=== PATIENT | male | born 1990 | race American Indian/Alaskan Native ===

== ENCOUNTER 2016-09-17 10:34 | Inpatient (IN) | payer SELFPAY ==
[2016-09-17 11:29] LABS: Anion Gap 21 mmol/L; Blood Urea Nitrogen 12 mg/dL (9-20); Calcium 9.2 mg/dL (8.4-10.2); Carbon Dioxide 23 mmol/L (22-30); Chloride 102.3 mmol/L (98-107); Glucose 123 mg/dL (75-100); Lipase 39 units/L (13-60); Potassium 3.2 mmol/L (3.6-5.0); Sodium 143 mmol/L (137-145)
[2016-09-17 11:32] LABS: Basophils % (Auto) 0.3 % (0.0-1.8); Eosinophils % (Auto) 0.9 % (0.0-4.3); Hematocrit 42.5 % (35.5-45.6); Hemoglobin 14.5 gm/dl (11.8-15.2); Mean Corpuscular HGB Conc 34 % (32-34); Mean Corpuscular Hemoglobin 29 pg (28-32); Mean Corpuscular Volume 85 fl (84-94); Platelet Count 211 K/mm3 (140-440); Red Blood Count 5.02 M/mm3 (3.65-5.03); Red Cell Distribution Width 13.5 % (13.2-15.2); White Blood Count 7.2 K/mm3 (4.5-11.0)
[2016-09-17 12:32] LABS: Bilirubin,Urine NEG (Negative); Blood,Urine NEG (Negative); Ketones,Urine NEG (Negative); Leukocyte Esterase,Urine NEG (Negative); Mucus,Urine FEW /HPF; Nitrite,Urine NEG (Negative); Protein,Urine <15 mg/dL mg/dL (Negative); Urobilinogen,Urine < 2.0 mg/dL (<2.0); WBC,Urine < 1.0 /HPF (0.0-6.0)
[2016-09-17] MEDS ORDERED: NACL 0.9% 1000 ML 1,000 ML IV ONE ×2 (13:50→15:33)
[2016-09-17] MEDS ORDERED: ZOFRAN IV ONE ×2 (13:50→18:30)
[2016-09-17] MEDS ORDERED: PEPCID IV ONE (13:50)
--- NOTE | 2016-09-17 14:43 | Emergency Department Report ---
<VIDA ALEGRIA - Last Filed: 09/17/16 18:44> ED N/V/D HPI - General Chief complaint: Nausea/Vomiting/Diarrhea Stated complaint: VOMITING/STOMACH PAIN/NAUSEA Time Seen by Provider: 09/17/16 13:49 Source: patient Mode of arrival: Wheelchair Limitations: No Limitations - History of Present Illness Initial comments: 26-year-old male past medical history marijuana use presents with complaint of 3 -4 days of intermittent nausea vomiting and abdominal pain subjective chills. Patient states that he is having difficulty maintaining any fluid or food by mouth. Patient actively vomiting during clinical exam, accompanied by his family members. MD complaint: nausea, vomiting, abdominal pain Onset/Timin -: days(s) Description of Vomiting: food contents, watery Associated Abdominal Pain: Yes Location: diffuse, periumbillcal, RLQ Pain Scale: 7 Quality: sharp Consistency: constant Worsens with: eating Associated Symptoms: nausea/vomiting - Related Data Allergies Allergy/AdvReac Type Severity Reaction Status Date / Time No Known Allergies Allergy Unverified 09/17/16 10:45 ED Review of Systems ROS: Stated complaint: VOMITING/STOMACH PAIN/NAUSEA Other details as noted in HPI Constitutional: denies: chills, fever Eyes: denies: eye pain, eye discharge, vision change ENT: denies: ear pain, throat pain Respiratory: denies: cough, shortness of breath, wheezing Cardiovascular: denies: chest pain, palpitations Endocrine: no symptoms reported Gastrointestinal: abdominal pain, nausea, vomiting. denies: diarrhea Genitourinary: denies: urgency, dysuria Musculoskeletal: denies: back pain, joint swelling, arthralgia Skin: denies: rash, lesions Neurological: denies: headache, weakness, paresthesias Psychiatric: denies: anxiety, depression Hematological/Lymphatic: denies: easy bleeding, easy bruising ED Past Medical Hx - Past Medical History Previous Medical History?: No - Surgical History Past Surgical History?: Yes Additional Surgical History: HERNIA REPAIR - Social History Smoking Status: Current Every Day Smoker Substance Use Type: Alcohol, Marijuana ED Physical Exam - General Limitations: No Limitations General appearance: alert, in no apparent distress - Head Head exam: Present: atraumatic, normocephalic - Eye Eye exam: Present: normal appearance, PERRL, EOMI - ENT ENT exam: Present: mucous membranes moist - Neck Neck exam: Present: normal inspection, full ROM - Respiratory Respiratory exam: Present: normal lung sounds bilaterally. Absent: respiratory distress - Cardiovascular Cardiovascular Exam: Present: regular rate, normal rhythm. Absent: systolic murmur, diastolic murmur, rubs, gallop - GI/Abdominal GI/Abdominal exam: Present: soft, tenderness (tenderness in both lower quadrants ), guarding, normal bowel sounds - Rectal Rectal exam: Present: deferred - Extremities Exam Extremities exam: Present: normal inspection - Back Exam Back exam: Present: normal inspection - Neurological Exam Neurological exam: Present: alert, oriented X3, CN II-XII intact, normal gait - Psychiatric Psychiatric exam: Present: normal affect, normal mood - Skin Skin exam: Present: warm, dry, intact, normal color. Absent: rash ED Course Vital Signs 09/17/16 09/17/16 09/17/16 10:46 15:51 18:51 Temperature 98.2 F Pulse Rate 52 L 65 Respiratory 16 16 16 Rate Blood Pressure 146/87 Blood Pressure 128/71 [Left] O2 Sat by Pulse 100 100 Oximetry 09/17/16 18:52 Temperature Pulse Rate 68 Respiratory 16 Rate Blood Pressure Blood Pressure 152/65 [Left] O2 Sat by Pulse 100 Oximetry ED Medical Decision Making - Lab Data Result diagrams: 09/17/16 10:54 09/17/16 10:54 - Medical Decision Making A/P: Abdominal pain, nausea and vomiting, clinical suspicion for appendicitis 1-I discussed case with Dr. Han. Given clinical concern for appendicitis I called Dr. Callejas of general surgery. As per Dr. Callejas patient to be nothing by mouth after midnight to be admitted to 2 W. surgical unit for appendectomy tomorrow morning. 2-analgesia, Dilaudid 0.5 mg every 4 when necessary, Zofran 4 mg every 8 when necessary, maintenance IV fluid, Ancef 2 g initial bolus then 1 g every 8 hours until after surgery as per 3-I informed the patient and his family members including mother at bedside of the clinical plan and our clinical concern. Patient in agreement with clinical plan and expresses understanding of the scenario Critical care attestation.: If time is entered above; I have spent that time in minutes in the direct care of this critically ill patient, excluding procedure time. ED Disposition Disposition: OP ADMIT IP TO THIS HOSP Is pt being admited?: Yes Does the pt Need Aspirin: No Condition: Stable <WENDI HAN - Last Filed: 09/17/16 19:50> ED Medical Decision Making - Lab Data Result diagrams: 09/17/16 10:54 09/17/16 10:54 - Medical Decision Making I have seen and examined this patient myself. I agree with the PA or FIELD CLINICAL ENGINEER plan as discussed. Patient is a young male with possible appendicitis. Discussed case with surgery. Plan to admit. Jareth Han
[2016-09-17 15:13] LABS: Alanine Aminotransferase 16 units/L (7-56); Albumin 4.5 g/dL (3.9-5); Albumin/Globulin Ratio 1.6 %; Alkaline Phosphatase 48 units/L (35-129); Creatine Kinase 138 units/L (55-170); Total Protein 7.3 g/dL (6.3-8.2)
[2016-09-17] MEDS ORDERED: REGLAN IV ONE (15:15)
[2016-09-17] MEDS ORDERED: TORADOL IV ONE (15:16)
[2016-09-17 15:28] LABS: Bilirubin,Direct < 0.2 mg/dL (0-0.2); Bilirubin,Indirect 0.3 mg/dL
[2016-09-17] MEDS ORDERED: NACL ONE (16:41)
--- NOTE | 2016-09-17 18:11 | Cat Scan Report ---
FINAL REPORT EXAM: CT ABDOMEN PELVIS W CON HISTORY: abdominal pain worsening TECHNIQUE: CT examination of the ABDOMEN after IV contrast CT examination of the PELVIS after IV contrast PRIORS: None. FINDINGS: Normal-appearing liver, gallbladder, adrenals, pancreas, and spleen. Intact normal caliber abdominal aorta and IVC. Normal-appearing kidneys. No hydronephrosis. Ureters obscured by adjacent anatomy. Normal-appearing stomach and duodenum. No small bowel distention in the abdomen and pelvis. Nonspecific slight pelvic cul-de-sac free fluid. This may be reactive. Normal-appearing urinary bladder, prostate, seminal vesicles, and rectum. Normal-appearing sigmoid colon. No gross ascites, free air, or colonic distention. Normal-appearing cecum and terminal ileum. The appendix is retrocecal in location and contains air diffusely without definite evidence of wall thickening. Nevertheless, there is nonspecific abnormal fat stranding adjacent to its midportion and distal tip. This may reflect mild mesenteritis adjacent to the appendix. The differential includes appendicitis despite the lack of mural thickening or enlargement with a relatively normal-appearing appendix. IMPRESSION: Although the retrocecal appendix appears normal, there is fat stranding adjacent to its midportion and distal tip. Findings suggest mesenteritis but the differential includes atypical retrocecal appendicitis
[2016-09-17] MEDS ORDERED: LACTATED RINGERS 1,000 ML IV ONE (18:30)
[2016-09-17] MEDS ORDERED: MORPHINE IV ONE (18:30)
[2016-09-17] MEDS ORDERED: ceFAZolin 2 GM in NACL 0.9% 100 ML IV ONE (18:57)
[2016-09-17] MEDS ORDERED: NACL 0.9% IV ONE (19:15)
[2016-09-17] MEDS ORDERED: ANCEF IV ONE (19:15)
[2016-09-17] MEDS ORDERED: KCL 10MEQ/100ML 10 MEQ/100 ML BAG IV ONE (20:15)
[2016-09-17] MEDS ORDERED: DILAUDID ONE (20:16)
[2016-09-17] MEDS: DILAUDID IV PRN (20:20)
[2016-09-17] MEDS: KCL 10MEQ/100ML 10 MEQ/100 ML BAG IV SCH ×2 (20:30→23:17)
[2016-09-17] MEDS: D5W/0.45% NACL/KCL 20 MEQ 20 MEQ/1,000 ML BAG IV SCH (21:27)
[2016-09-18] MEDS: ANCEF/NS 1 GM/50 ML 1 GM/50 ML BAG IV SCH ×2 (03:10→11:00)
[2016-09-18] MEDS: ZOFRAN IV PRN (05:53)
[2016-09-18 07:16] LABS: Basophils % (Auto) 0.3 % (0.0-1.8); Eosinophils % (Auto) 0.6 % (0.0-4.3); Hematocrit 41.3 % (35.5-45.6); Hemoglobin 14.1 gm/dl (11.8-15.2); Mean Corpuscular HGB Conc 34 % (32-34); Mean Corpuscular Hemoglobin 29 pg (28-32); Mean Corpuscular Volume 85 fl (84-94); Platelet Count 190 K/mm3 (140-440); Red Blood Count 4.84 M/mm3 (3.65-5.03); Red Cell Distribution Width 13.6 % (13.2-15.2); White Blood Count 6.3 K/mm3 (4.5-11.0)
[2016-09-18 07:33] LABS: Anion Gap 17 mmol/L; BUN/Creatinine Ratio 6.66; Blood Urea Nitrogen 6 mg/dL (9-20); Calcium 8.7 mg/dL (8.4-10.2); Carbon Dioxide 25 mmol/L (22-30); Chloride 102.8 mmol/L (98-107); Glucose 99 mg/dL (75-100); Potassium 3.5 mmol/L (3.6-5.0); Sodium 141 mmol/L (137-145)
[2016-09-18] MEDS: DILAUDID IV PRN ×3 (08:01→22:17)
--- NOTE | 2016-09-18 10:27 | Anesthesia Consultation ---
Anesthesia Consult and Med Hx Date of service: 09/18/16 - Airway Anesthetic Teeth Evaluation: Good ROM Head & Neck: Adequate Mental/Hyoid Distance: Adequate Mallampati Class: Class II Intubation Access Assessment: Probably Good - Pulmonary Exam CTA: Yes - Pre-Operative Health Status ASA Pre-Surgery Classification: ASA2 Proposed Anesthetic Plan: General - Pulmonary Hx Smoking: Yes (3-4 cig per day - quit 2-3 wks ago) Hx Asthma: No COPD: No Hx Pneumonia: No - Central Nervous System Hx Psychiatric Problems: No - Endocrine Hx End Stage Renal Disease: No - Other Systems Hx Substance Use: Yes (MJ) Hx Cancer: No - Additional Comments Anesthesia Medical History Comments: abdominal pain, N&V
[2016-09-18] MEDS ORDERED: DIPRIVAN 10 MG/ML IV ONE (10:38)
[2016-09-18] MEDS ORDERED: DILAUDID ONE (10:40)
[2016-09-18] MEDS ORDERED: ZEMURON IV ONE (10:40)
[2016-09-18] MEDS ORDERED: XYLOCAINE MPF 2% ONE (10:40)
[2016-09-18] MEDS ORDERED: ANCEF ONE (11:17)
[2016-09-18] MEDS ORDERED: DECADRON ONE (11:26)
[2016-09-18] MEDS ORDERED: NEOSTIGMINE ONE (11:27)
[2016-09-18] MEDS ORDERED: ZOFRAN ONE (11:27)
[2016-09-18] MEDS ORDERED: ROBINUL ONE (11:27)
[2016-09-18] MEDS ORDERED: LACTATED RINGERS 2,000 ML ONE (11:28)
[2016-09-18] MEDS ORDERED: MARCAINE 0.5% INFILTRATI ONE (11:46)
[2016-09-18] MEDS ORDERED: DEMEROL ONE (12:14)
--- NOTE | 2016-09-18 12:36 | Anesthesia Day of Surgery ---
Anesthesia Day of Surgery - Day of Surgery Patient Examined: Yes Patient H&P Reviewed: Yes Patient is NPO: Yes (but has N&V)
[2016-09-18] MEDS: D5W/0.45% NACL/KCL 20 MEQ 20 MEQ/1,000 ML BAG IV SCH (16:29)
--- NOTE | 2016-09-18 17:29 | Post Anesthesia Evaluation ---
- Post Anesthesia Evaluation Patient Participated: Yes Airway Patent: Yes Stable Respiratory Function: Yes Nausea/Vomiting: No Temp > 96.8F: Yes Pain Manageable: Yes Adequeate Hydration: Yes Anesthesia Complications: No
--- NOTE | 2016-09-19 00:48 | Admit Criteria Form ---
Admission Criteria Documentation: ABDOMINAL PAIN Clinical Indications for Admission to Inpatient Care (Place 'X' for any and all applicable criteria): Admission is indicated for ANY ONE of the following(1)(2)(3)(4)(5): []I. Inpatient admission required rather than observation care (Also use Abdominal Pain: Observation Care, as appropriate) because of ANY ONE of the following: [ ]a) Severe pain requiring acute inpatient management [ ]b) Identification of etiology/finding that requires inpatient care (eg, aortic dissection, free air) [ ]c) Absent bowel sounds with complete ileus(6) [ ]d) Suspected toxic megacolon [ ]e) Severe electrolyte abnormalities requiring inpatient care [ ]f) High fever or infection requiring inpatient admission as indicated by ANY ONE of following(7)(8): [ ] i) Appropriate outpatient or observational care antimicrobial treatment unavailable, not effective, or not feasible [ ] ii) Documented bacteremia [ ] iii) Temperature > 104.9 degrees F (oral) [ ] iv) T >103.1 F (oral) or < 96.8 F(rectal) that does not respond to all emergency treatment measures [ ]g) Signs of intestinal obstruction [B] [ ]h) Hemodynamic instability [ ]i) IV fluid to replace significant ongoing losses (greater than 3 L/m2 per day) (12)(13) [ ]j) Percutaneous or open drainage (eg, abscess, biliary tract ) procedures [ ]k) Parenteral nutrition regimen that must be implemented on inpatient basis [ ]l) Other condition,treatment or monitoring requiring inpatient admission. [ ]II. Peritoneal signs present [X ]III. Surgery needed that cannot be performed on an ambulatory basis. [ ]IV. Evaluation requires patient to not eat or drink for extended period ( eg, more than 24 hours). [ ]V. Contraindications and/or Inappropriate clinical situations for Observational Care in patients with abdominal pain, when ANY ONE of the following is required: [ ]a) Thorough evaluation is required to prevent catastrophic events due to delays in diagnosing (e.g.Mesenteric ischemia) 1,3 [ ]b) Patient with severe pathology or with chronic symptoms unlikely to improve in the ED stay (3) [ ]. General contraindications and/or Inappropriate clinical situations for Observational Care in patients with abdominal pain, when ANY ONE of the following is required: [ ]a) Prediction of prolongation of LOS based on ANY ONE of the following may be considered as a contraindication for observational care 2, 3, 4, 5, 6, 7, 8, 9, 10, 11 [ ]i) Age > 65 yrs. [ ]ii) Patient arriving by ambulance [ ]iii) Patient with high acuity [ ]iv) Patient requiring vital sign monitoring [ ]v) Patient on IV medication [ ]b) Systolic blood pressures 180mmHg 3,12 [ ]c) Patient with altered mental status including delirium and other alteration of consciousness, (3) [ ]d) Patient whose discharge disposition will be to a [facility] home or rehabilitation home should not be managed in Emergency Department Observation Unit. CMS rule requires 3 days hospital stay before such placement.3,13 [ ]e) Patient with failure to thrive due to broad array of etiologies 3,16,17 [ ]f) Inability to ambulate 3,14 Extended stay beyond goal length of stay may be needed for(2)(3): [ ]a) Persistent abdominal pain with suspected intra-abdominal process [ ]b) Diagnosed condition requiring continued stay (e.g., pancreatitis, complicated diverticulitis) [ ]c) Surgery (e.g., colectomy) The original [employer] content created by [employer] has been revised. The portions of the content which have been revised are identified through the use of italic text or in bold, and [facility] has neither reviewed nor approved the modified material.All other unmodified content is copyright [employer]. Please see references footnoted in the original [employer] edition 2016 Admission Criteria Met: Yes
[2016-09-19] MEDS: D5W/0.45% NACL/KCL 20 MEQ 20 MEQ/1,000 ML BAG IV SCH ×3 (03:02→22:12)
[2016-09-19] MEDS: DILAUDID IV PRN ×3 (08:35→16:29)
[2016-09-19] MEDS: ZOFRAN IV PRN ×2 (08:36→16:22)
[2016-09-19] MEDS ORDERED: TYLENOL PO PRN (17:29)
[2016-09-19] MEDS ORDERED: APRESOLINE IV ONE (17:31)
[2016-09-19 19:37] LABS: Basophils % (Auto) 0.2 % (0.0-1.8); Eosinophils % (Auto) 0.1 % (0.0-4.3); Hematocrit 43.7 % (35.5-45.6); Mean Corpuscular HGB Conc 34 % (32-34); Mean Corpuscular Hemoglobin 29 pg (28-32); Mean Corpuscular Volume 84 fl (84-94); Platelet Count 198 K/mm3 (140-440); Red Blood Count 5.19 M/mm3 (3.65-5.03); Red Cell Distribution Width 13.5 % (13.2-15.2); White Blood Count 7.9 K/mm3 (4.5-11.0)
[2016-09-19 19:53] LABS: Anion Gap 18 mmol/L; Blood Urea Nitrogen 4 mg/dL (9-20); Calcium 8.9 mg/dL (8.4-10.2); Carbon Dioxide 26 mmol/L (22-30); Chloride 96.7 mmol/L (98-107); Glucose 121 mg/dL (75-100); Potassium 3.3 mmol/L (3.6-5.0); Sodium 137 mmol/L (137-145)
--- NOTE | 2016-09-19 20:49 | Consultation ---
History of Present Illness - Reason for Consult Consult date: 09/19/16 Medical management Requesting physician: JUSTINO NOLAND - History of Present Illness Status post appendectomy yesterday. Patient has been having low-grade fever. Patient also nauseous and vomiting today. Also his blood pressure is been running high. No chills. Abdominal pain about 5/10. Past History Past Surgical History: appendectomy Social history: lives with family Family history: no significant family history Medications and Allergies Allergies Allergy/AdvReac Type Severity Reaction Status Date / Time No Known Allergies Allergy Unverified 09/17/16 10:45 Home Medications Medication Instructions Recorded Confirmed Last Taken Type No Known Home Medications [No 09/17/16 09/17/16 Unknown History Reported Home Medications] Active Meds: Active Medications Acetaminophen (Tylenol) 650 mg PO Q4H PRN PRN Reason: Pain, Mild (1-3) Last Admin: 09/19/16 17:44 Dose: 650 mg Hydromorphone HCl (Dilaudid) 0.5 mg IV Q4H PRN PRN Reason: Pain , Severe (7-10) Stop: 09/19/16 23:59 Last Admin: 09/19/16 16:29 Dose: 0.5 mg Potassium Chloride/Dextrose/Sod Cl (D5w/0.45% Nacl/Kcl 20 Meq) 20 meq in 1,000 mls @ 100 mls/hr IV DIRECT YULIET Last Admin: 09/19/16 12:48 Dose: 100 mls/hr Ondansetron HCl (Zofran) 4 mg IV Q8H PRN PRN Reason: Vomiting Last Admin: 09/19/16 16:22 Dose: 4 mg Review of Systems All systems: negative Constitutional: fever Gastrointestinal: abdominal pain, nausea, vomiting Exam - Physical Exam Narrative exam: In discomfort secondary to abdominal pain - Constitutional Vitals: Temp Pulse Resp BP Pulse Ox 99.7 F H 56 L 22 176/94 98 09/19/16 17:22 09/19/16 17:45 09/19/16 17:22 09/19/16 17:45 09/19/16 07:43 General appearance: Present: no acute distress, well-nourished - EENT Eyes: Present: PERRL ENT: hearing intact, clear oral mucosa - Neck Neck: Present: supple, normal ROM - Respiratory Respiratory effort: normal Respiratory: bilateral: CTA - Cardiovascular Heart Sounds: Present: S1 & S2. Absent: rub, click - Extremities Extremities: pulses symmetrical, No edema Peripheral Pulses: within normal limits - Abdominal General gastrointestinal: Present: soft, non-tender, non-distended, normal bowel sounds Male genitourinary: Present: normal - Integumentary Integumentary: Present: clear, warm, dry - Musculoskeletal Musculoskeletal: gait normal, strength equal bilaterally - Psychiatric Psychiatric: appropriate mood/affect, intact judgment & insight - Neurologic Neurologic: CNII-XII intact, moves all extremities Results - Labs CBC & Chem 7: 09/19/16 19:17 09/19/16 19:17 Labs: Abnormal lab results 09/19/16 09/19/16 Range/Units 19:17 19:17 RBC 5.19 H (3.65-5.03) M/mm3 [place] % (Auto) 8.5 H (0.0-7.3) % Seg Neutrophils % 76.3 H (40.0-70.0) % Potassium 3.3 L (3.6-5.0) mmol/L Chloride 96.7 L (98-107) mmol/L BUN 4 L (9-20) mg/dL Glucose 121 H (75-100) mg/dL Assessment and Plan - Patient Problems (1) Abdominal pain Current Visit: Yes Status: Acute Qualifiers: Abdominal location: generalized Qualified Code(s): R10.84 - Generalized abdominal pain Plan to address problem: We will check for intestinal obstruction and ileus. We will get a plain abdominal x-ray upright and if necessary CT of the abdomen. (2) Fever Current Visit: Yes Status: Acute Qualifiers: Fever type: F Encounter type: initial encounter Qualified Code(s): T88.3XXA - Malignant hyperthermia due to anesthesia, initial encounter Plan to address problem: Rule out any infection. We will get CBC and CMP. Also chest x-ray and abdominal x-ray. Also urinalysis. IV Zosyn started. For possible intra- abdominal infection. (3) Hypertension Current Visit: Yes Status: Acute Qualifiers: Hypertension type: unspecified secondary hypertension Qualified Code(s): I15.9 - Secondary hypertension, unspecified; I15 - Secondary hypertension Plan to address problem: Secondary to pain. Hydralazine when necessary.
[2016-09-19] MEDS ORDERED: DILAUDID IV PRN (21:04)
--- NOTE | 2016-09-19 21:50 | Cat Scan Report ---
FINAL REPORT PROCEDURE: CT ABDOMEN PELVIS WO CON TECHNIQUE: Computerized axial tomography of the abdomen and pelvis was performed without intravenous contrast. This study is performed without intravascular contrast material and its sensitivity for abdominal and pelvic pathology, including neoplasms, inflammation, abscess, free fluid, thrombosis, arterial dissection and infarction, is reduced compared with a contrast enhanced study. HISTORY: Abd pain -severe COMPARISON: No prior studies are available for comparison. FINDINGS: Liver, spleen, and adrenal glands are within normal limits. Bilateral kidneys demonstrate normal density without calculi or hydronephrosis. Aorta is of normal caliber. Mild degree of free fluid is noted in the pelvic cavity. There is no free air. Gallbladder is partially distended. Small bowel loops are within normal limits. Contrast is identified in the colon and rectum. Appendix is not distinctly visualized. Small amount of free fluid is noted in the right paracolic gutter. Skin janae are identified in the right lower quadrant. Multiple pockets of air are identified in the subcutaneous plane and intermuscular plane of right lower quadrant extending superiorly into the right upper quadrant. A focal fluid collection is not identified. IMPRESSION: Appendix is not distinctly visualized most likely secondary to a pen neck me. Multiple pockets of subcutaneous and a intermuscular air are identified in the abdominal wall of right lower quadrant extending into the right upper quadrant. These are most likely secondary to recent surgery. Mild degree free fluid in the pelvic cavity and right paracolic gutter noted. If the symptoms persist follow-up study with IV contrast is recommended.
[2016-09-19 21:59] LABS: Basophils % (Auto) 0.4 % (0.0-1.8); Eosinophils % (Auto) 0.1 % (0.0-4.3); Hemoglobin 14.4 gm/dl (11.8-15.2); Mean Corpuscular HGB Conc 34 % (32-34); Mean Corpuscular Hemoglobin 29 pg (28-32); Mean Corpuscular Volume 84 fl (84-94); Platelet Count 199 K/mm3 (140-440); Red Blood Count 5.02 M/mm3 (3.65-5.03); Red Cell Distribution Width 13.1 % (13.2-15.2); White Blood Count 8.2 K/mm3 (4.5-11.0)
[2016-09-19] MEDS: APRESOLINE IV SCH (22:08)
[2016-09-19 22:17] LABS: Alanine Aminotransferase 11 units/L (7-56); Albumin 4.1 g/dL (3.9-5); Albumin/Globulin Ratio 1.5 %; Alkaline Phosphatase 43 units/L (35-129); Anion Gap 18 mmol/L; Blood Urea Nitrogen 4 mg/dL (9-20); Calcium 8.7 mg/dL (8.4-10.2); Carbon Dioxide 24 mmol/L (22-30); Chloride 96.7 mmol/L (98-107); Glucose 113 mg/dL (75-100); Sodium 136 mmol/L (137-145); Total Protein 6.9 g/dL (6.3-8.2)
[2016-09-19] MEDS: ZOSYN/NS 4.5GM/100ML 4.5 GM/100 ML VIAL IV SCH (23:48)
[2016-09-20] MEDS: ZOSYN/NS 4.5GM/100ML 4.5 GM/100 ML VIAL IV SCH (06:46)
[2016-09-20 07:17] VITALS: BP 124/71
[2016-09-20] MEDS: APRESOLINE IV SCH ×2 (07:30→09:50)
--- NOTE | 2016-09-20 09:02 | Progress Note ---
Assessment and Plan Assessment and plan: 26M w no significant past medical history who presents appendicitis. Medicine consulted for management of hypertension Appendicitis Status post appendectomy by surgery, repeat CT abdomen/pelvis is unremarkable GERD started on PPI, gave him rx to take home with Patient does not have hypertension, currently normotensive postoperatively. No acute or chronic medical problems, medications and at this point. Please reconsult as needed. Thank you for letting us participate in the care of this patient. History Interval history: no fevers, no chills, no VELA Hospitalist Physical - Constitutional Vitals: Temp Pulse Resp BP Pulse Ox 98.5 F 56 L 20 124/71 98 09/20/16 07:05 09/20/16 07:05 09/20/16 07:05 09/20/16 07:05 09/19/16 22:16 General appearance: Present: no acute distress, well-nourished - EENT Eyes: Present: EOM intact ENT: hearing intact, clear oral mucosa, dentition normal - Neck Neck: Present: supple, normal ROM - Respiratory Respiratory: bilateral: CTA - Cardiovascular Rhythm: regular Heart Sounds: Present: S1 & S2 - Extremities Extremities: no ischemia, No edema Peripheral Pulses: within normal limits - Abdominal General gastrointestinal: soft, tender, normal bowel sounds - Integumentary Integumentary: Present: clear, warm, dry - Psychiatric Psychiatric: appropriate mood/affect, intact judgment & insight - Neurologic Neurologic: CNII-XII intact, focal deficits Results - Labs CBC & Chem 7: 09/19/16 21:42 09/19/16 21:42 Labs: Laboratory Last Values WBC 8.2 K/mm3 (4.5-11.0) 09/19/16 21:42 RBC 5.02 M/mm3 (3.65-5.03) 09/19/16 21:42 Hgb 14.4 gm/dl (11.8-15.2) 09/19/16 21:42 Hct 42.0 % (35.5-45.6) 09/19/16 21:42 MCV 84 fl (84-94) 09/19/16 21:42 MCH 29 pg (28-32) 09/19/16 21:42 MCHC 34 % (32-34) 09/19/16 21:42 RDW 13.1 % (13.2-15.2) L 09/19/16 21:42 Plt Count 199 K/mm3 (140-440) 09/19/16 21:42 Lymph % (Auto) 15.5 % (13.4-35.0) 09/19/16 21:42 [place] % (Auto) 10.2 % (0.0-7.3) H 09/19/16 21:42 Eos % (Auto) 0.1 % (0.0-4.3) 09/19/16 21:42 Baso % (Auto) 0.4 % (0.0-1.8) 09/19/16 21:42 Lymph # 1.3 K/mm3 (1.2-5.4) 09/19/16 21:42 [place] # 0.8 K/mm3 (0.0-0.8) 09/19/16 21:42 Eos # 0.0 K/mm3 (0.0-0.4) 09/19/16 21:42 Baso # 0.0 K/mm3 (0.0-0.1) 09/19/16 21:42 Seg Neutrophils % 73.8 % (40.0-70.0) H 09/19/16 21:42 Seg Neutrophils # 6.0 K/mm3 (1.8-7.7) 09/19/16 21:42 Sodium 136 mmol/L (137-145) L 09/19/16 21:42 Potassium 3.3 mmol/L (3.6-5.0) L 09/19/16 19:17 Chloride 96.7 mmol/L (98-107) L 09/19/16 19:17 Carbon Dioxide 24 mmol/L (22-30) 09/19/16 21:42 Anion Gap 18 mmol/L 09/19/16 19:17 BUN 4 mg/dL (9-20) L 09/19/16 21:42 Creatinine 0.8 mg/dL (0.8-1.5) 09/19/16 21:42 Estimated GFR > 60 ml/min 09/19/16 21:42 BUN/Creatinine Ratio 5.00 % 09/19/16 21:42 Glucose 113 mg/dL (75-100) H 09/19/16 21:42 Lactic Acid 1.70 mmol/L (0.7-2.0) 09/19/16 19:17 Calcium 8.7 mg/dL (8.4-10.2) 09/19/16 21:42 Total Bilirubin 0.50 mg/dL (0.1-1.2) 09/19/16 21:42 Direct Bilirubin < 0.2 mg/dL (0-0.2) 09/17/16 14:37 Indirect Bilirubin 0.3 mg/dL 09/17/16 14:37 AST 14 units/L (5-40) 09/19/16 21:42 ALT 11 units/L (7-56) 09/19/16 21:42 Alkaline Phosphatase 43 units/L (35-129) 09/19/16 21:42 Total Creatine Kinase 138 units/L (55-170) 09/17/16 14:37 Total Protein 6.9 g/dL (6.3-8.2) 09/19/16 21:42 Albumin 4.1 g/dL (3.9-5) 09/19/16 21:42 Albumin/Globulin Ratio 1.5 % 09/19/16 21:42 Lipase 39 units/L (13-60) 09/17/16 10:54 Urine Color Yellow (Yellow) 09/17/16 12:07 Urine Turbidity Clear (Clear) 09/17/16 12:07 Urine pH 7.0 (5.0-7.0) 09/17/16 12:07 Ur Specific [place] 1.018 (1.003-1.030) 09/17/16 12:07 Urine Protein <15 mg/dl mg/dL (Negative) 09/17/16 12:07 Urine Glucose (UA) Neg mg/dL (Negative) 09/17/16 12:07 Urine Ketones Neg mg/dL (Negative) 09/17/16 12:07 Urine Blood Neg (Negative) 09/17/16 12:07 Urine Nitrite Neg (Negative) 09/17/16 12:07 Urine Bilirubin Neg (Negative) 09/17/16 12:07 Urine Urobilinogen < 2.0 mg/dL (<2.0) 09/17/16 12:07 Ur Leukocyte Esterase Neg (Negative) 09/17/16 12:07 Urine WBC (Auto) < 1.0 /HPF (0.0-6.0) 09/17/16 12:07 Urine RBC (Auto) 1.0 /HPF (0.0-6.0) 09/17/16 12:07 Urine Mucus Few /HPF 09/17/16 12:07
--- NOTE | 2016-09-20 12:01 | Progress Note ---
Subjective Narrative: Pt was to go home day of the operation , apparently he stayed ?! dont know why , CT yesterday was OK , home today to see me in 10 days . Objective Vital Signs - 12hr 09/20/16 09/20/16 06:21 07:05 Temperature 98.8 F 98.5 F Pulse Rate [ 53 L 56 L Apical] Respiratory 18 20 Rate Blood Pressure 126/77 124/71 [Right Arm] - Labs 09/19/16 21:42 09/19/16 21:42 Diabetes panel 09/19/16 09/19/16 Range/Units 19:17 21:42 Sodium 137 136 L (137-145) mmol/L Potassium 3.3 L (3.6-5.0) mmol/L Chloride 96.7 L (98-107) mmol/L Carbon Dioxide 26 24 (22-30) mmol/L BUN 4 L 4 L (9-20) mg/dL Creatinine 0.8 0.8 (0.8-1.5) mg/dL Glucose 121 H 113 H (75-100) mg/dL Calcium 8.9 8.7 (8.4-10.2) mg/dL AST 14 (5-40) units/L ALT 11 (7-56) units/L Alkaline Phosphatase 43 (35-129) units/L Total Protein 6.9 (6.3-8.2) g/dL Albumin 4.1 (3.9-5) g/dL Calcium panel 09/19/16 09/19/16 Range/Units 19:17 21:42 Calcium 8.9 8.7 (8.4-10.2) mg/dL Albumin 4.1 (3.9-5) g/dL Pituitary panel 09/19/16 09/19/16 Range/Units 19:17 21:42 Sodium 137 136 L (137-145) mmol/L Potassium 3.3 L (3.6-5.0) mmol/L Chloride 96.7 L (98-107) mmol/L Carbon Dioxide 26 24 (22-30) mmol/L BUN 4 L 4 L (9-20) mg/dL Creatinine 0.8 0.8 (0.8-1.5) mg/dL Glucose 121 H 113 H (75-100) mg/dL Calcium 8.9 8.7 (8.4-10.2) mg/dL Adrenal panel 09/19/16 09/19/16 Range/Units 19:17 21:42 Sodium 137 136 L (137-145) mmol/L Potassium 3.3 L (3.6-5.0) mmol/L Chloride 96.7 L (98-107) mmol/L Carbon Dioxide 26 24 (22-30) mmol/L BUN 4 L 4 L (9-20) mg/dL Creatinine 0.8 0.8 (0.8-1.5) mg/dL Glucose 121 H 113 H (75-100) mg/dL Calcium 8.9 8.7 (8.4-10.2) mg/dL Total Bilirubin 0.50 (0.1-1.2) mg/dL AST 14 (5-40) units/L ALT 11 (7-56) units/L Alkaline Phosphatase 43 (35-129) units/L Total Protein 6.9 (6.3-8.2) g/dL Albumin 4.1 (3.9-5) g/dL
--- NOTE | 2016-09-20 12:03 | Progress Note ---
Subjective Narrative: the dictation system has been down 4 days now cant dictate ,!!!! Objective Vital Signs - 12hr 09/20/16 09/20/16 06:21 07:05 Temperature 98.8 F 98.5 F Pulse Rate [ 53 L 56 L Apical] Respiratory 18 20 Rate Blood Pressure 126/77 124/71 [Right Arm] - Labs 09/19/16 21:42 09/19/16 21:42 Diabetes panel 09/19/16 09/19/16 Range/Units 19: 21:42 Sodium 137 136 L (137-145) mmol/L Potassium 3.3 L (3.6-5.0) mmol/L Chloride 96.7 L (98-107) mmol/L Carbon Dioxide 26 24 (22-30) mmol/L BUN 4 L 4 L (9-20) mg/dL Creatinine 0.8 0.8 (0.8-1.5) mg/dL Glucose 121 H 113 H (75-100) mg/dL Calcium 8.9 8.7 (8.4-10.2) mg/dL AST 14 (5-40) units/L ALT 11 (7-56) units/L Alkaline Phosphatase 43 (35-129) units/L Total Protein 6.9 (6.3-8.2) g/dL Albumin 4.1 (3.9-5) g/dL Calcium panel 09/19/16 09/19/16 Range/Units 19: 21:42 Calcium 8.9 8.7 (8.4-10.2) mg/dL Albumin 4.1 (3.9-5) g/dL Pituitary panel 09/19/16 09/19/16 Range/Units 19:17 21:42 Sodium 137 136 L (137-145) mmol/L Potassium 3.3 L (3.6-5.0) mmol/L Chloride 96.7 L (98-107) mmol/L Carbon Dioxide 26 24 (22-30) mmol/L BUN 4 L 4 L (9-20) mg/dL Creatinine 0.8 0.8 (0.8-1.5) mg/dL Glucose 121 H 113 H (75-100) mg/dL Calcium 8.9 8.7 (8.4-10.2) mg/dL Adrenal panel 07/03/17 07/03/17 Range/Units 19:17 21:42 Sodium 137 136 L (137-145) mmol/L Potassium 3.3 L (3.6-5.0) mmol/L Chloride 96.7 L (98-107) mmol/L Carbon Dioxide 26 24 (22-30) mmol/L BUN 4 L 4 L (9-20) mg/dL Creatinine 0.8 0.8 (0.8-1.5) mg/dL Glucose 121 H 113 H (75-100) mg/dL Calcium 8.9 8.7 (8.4-10.2) mg/dL Total Bilirubin 0.50 (0.1-1.2) mg/dL AST 14 (5-40) units/L ALT 11 (7-56) units/L Alkaline Phosphatase 43 (35-129) units/L Total Protein 6.9 (6.3-8.2) g/dL Albumin 4.1 (3.9-5) g/dL
== END 2016-09-20 12:33 | disposition home or self-care (01) | DRG 342 ==
LOC: ED 10:34 → 2B-SURG 18:51
PROVIDERS: ADMIT Surgery; ATTEND Surgery
PROC: 0DTJ4ZZ Resection of Appendix, Percutaneous Endoscopic Approach (ICD-10-PCS; principal; 2016-09-18)
DX: K37 Unspecified appendicitis (principal); T88.3XXA Malignant hyperthermia due to anesthesia, initial encounter; K21.9 Gastro-esophageal reflux disease without esophagitis; R10.84 Generalized abdominal pain; I15.9 Secondary hypertension, unspecified; F17.200 Nicotine dependence, unspecified, uncomplicated; F12.90 Cannabis use, unspecified, uncomplicated; Z72.89 Other problems related to lifestyle
CPT/HCPCS: 36415; 74176; 74177; 80048; 80053; 80074; 81001; 82140; 82550; 83690; 85025; 87040; 88304; 88307; 96361; 96365; 96375; 96376; 99406; J0360; J0690; J1100; J1170; J1885; J2175; J2270; J2405; J2543; J2704; J2710; J2765; J3480; J7030; J7120; Q9967